=== PATIENT | female | born 1970 | race Two or more races ===

== ENCOUNTER 2016-10-20 22:52 | Inpatient (IN) | payer BC ==
--- NOTE | ~2016-10-20 | DS ---
Discharge Summary [address] [place]. [address] NAME: MIKO MARQUEZ : 66 STATUS : ADM IN [facility]#: [id number] AGE: 46 ADM/REG DATE : 10/21/16 MR#: [id number] REPORT SERV DATE: 10/22/16 DICTATED BY: EVERT JOHNSON DATE: 10/22/16 REPORT STATUS : Draft TRANSCRIBED BY: MODL DATE: 10/22/16 ADMISSION DATE: 10/21/2016 DISCHARGE DATE: 10/22/2016 FINAL HOSPITAL DIAGNOSES: 1. Diabetes mellitus, hyperglycemic episode without diabetic ketoacidosis. 2. Palpitations, resolved. CONSULTATIONS: rn diabetes educator. PROCEDURES: None. CURRENT PHYSICAL FINDINGS AND HPI: Please see dictated H and P by Dr. Agustin. In brief, the patient is a 46-year-old female with a history of diabetes mellitus, not on medications for approximately the past year secondary to diet and exercise management, presented with a nonketotic hyperosmolar state with a blood glucose of over 600. She also complained of palpitations. Vital signs at time of admission, BP was 172/98, subsequent blood pressures were 130s to 140s over 80s. No fever during her hospital stay. Initial heart rate was greater than 100. After IV fluids, her average heart rate was 70s to 80s. Despite her elevated blood sugar, her initial BMP was unremarkable. Initial blood sugar was 605. This was brought down rapidly with an insulin drip. Troponin was negative x2. A1c was 14. No leukocytosis was noted. Urinalysis was unremarkable. The patient was admitted. She was started on insulin drip, IV fluids, electrolyte replacement, serial labs; and I saw her the following day. Her blood sugars were markedly improved on 2-3 units an hour of insulin drip. Diabetic education was requested. The drip was transitioned over to sliding scale and after confirming her electrolytes were stable, a metformin was reintroduced. Subsequently, blood sugars were averaging 250 or below. The patient did well with her diabetic teaching and I felt stable for discharge. She was assisted with finding a local PCP for followup. DISPOSITION: She is discharged home. She needs to follow up with PCP of choice within the next several weeks. She was given a prescription for metformin 500 b.i.d.; OneTouch strips and a meter; Habitrol patch 21 mg apply daily, 14, no refill. [place] for NovoLog FlexPen and a copy of the sliding scale. She will also continue her Aleve and Zantac p.r.n. She is to return for any worsening symptoms. TLF/BRONSON Evert Johnson M.D. / [id number] CC: Discharge Summary [address] [address] NAME: MIKO MARQUEZ : 66 STATUS : ADM IN [facility]#: [id number] AGE: 46 ADM/REG DATE : 10/21/16 MR#: [id number] REPORT SERV DATE: 10/22/16 DICTATED BY: EVERT JOHNSON DATE: 10/22/16 REPORT STATUS : Draft TRANSCRIBED BY: MODL DATE: 10/22/16 Evert Johnson M.D.
--- NOTE | ~2016-10-20 | HP ---
History And Physical [address] [facility] [place]. [address] NAME: MIKO LLOYD : 66 STATUS : ADM IN [facility]#: [id number] AGE: 46 ADM/REG DATE : 10/21/16 MR#: [id number] REPORT SERV DATE: 10/21/16 DICTATED BY: KAMALJIT CHAWLA DATE: 10/21/16 REPORT STATUS : Draft TRANSCRIBED BY: MODL DATE: 10/21/16 DATE OF ADMISSION: 10/21/2016 POINT OF ENTRY: [facility] Emergency Department. PRIMARY CARE PHYSICIAN: None at this time. CHIEF COMPLAINT: Palpitations and racing heart rate, elevated blood sugar. HISTORY OF PRESENT ILLNESS: Ms. Lloyd is a 46-year-old female with history of non-insulin- dependent diabetes mellitus type 2, currently not on any medications who presents here today with the acute onset of racing heart rate with palpitations and elevated blood sugar. The patient was formerly on metformin and managed through a local physician's care. For some reason, she stopped taking metformin about a year ago in the setting of dieting and some significant weight loss. She admittedly has not followed up with any physician since then, has not checked her blood sugar since then either. The patient does report some polyuria and polydipsia for the past few days in addition to the above-mentioned symptoms of racing heart rate and palpitations. Today, she complained of the symptoms, and her family states they could even see her heart racing in on her chest. They checked her blood sugar at that time, and it was very elevated at 484 and presented to the emergency department. She denies any recent fevers, night sweats, chills, chest pain, shortness of breath, cough, sputum production, abdominal pain, nausea, vomiting, diarrhea, constipation, dysuria, melena, hematochezia, hemoptysis, or hematemesis. Initial evaluation in the emergency department noted for a blood sugar initially of 605 with no evidence of DKA. She was started on some IV fluids as well as insulin drip and admitted to the Hospitalist Service. COMPREHENSIVE REVIEW OF SYSTEMS: Otherwise negative unless listed in history of present illness. PREVIOUS MEDICAL HISTORY: Qes-wdewkkt-wswhtntji diabetes mellitus type 2. SURGICAL HISTORY: None. ALLERGIES: NO KNOWN DRUG ALLERGIES. HOME MEDICATIONS: 1. Aleve 440 mg p.r.n. 2. Zantac 75 mg daily. SOCIAL HISTORY: Denies any tobacco, alcohol, or illicits. Formerly from [facility]. History And Physical [address] [address] NAME: MIKO LLOYD : 66 STATUS : ADM IN PAT#: [id number] AGE: 46 ADM/REG DATE : 10/21/16 MR#: [id number] REPORT SERV DATE: 10/21/16 DICTATED BY: KAMALJIT CHAWLA DATE: 10/21/16 REPORT STATUS : Draft TRANSCRIBED BY: MODAugust DATE: 10/21/16 FAMILY MEDICAL HISTORY: Mom and dad reportedly healthy. Siblings history is unknown as all her family members are living in [facility] currently. LABS AND IMAGIN. White count 7.0, hemoglobin 15.6, hematocrit 42.6, platelet count is 203, INR 0.9. 2. Sodium is 135, potassium 3.9, chloride 99, carbon dioxide 26, BUN 12, creatinine 0.82, glucose is 605, magnesium 1.7. Calcium is 9.8, protein is 8.3, albumin is 4.1, bilirubin 0.4, ALT is 46, AST 21, alkaline phosphatase is 91. 3. Troponin less than 0.0. 4. Serum acetone is negative. 5. Urinalysis; specific gravity 1.022, positive ketones, no evidence of any infection. 6. Her EKG per my review shows sinus tachycardia with heart rate of 102. I do not see any acute ischemia or infarction. PHYSICAL EXAMINATION: VITAL SIGNS: Temperature is 98.3 degrees Fahrenheit, pulse is reported to be 177, respirations 16, saturating 95% on room air. Blood pressure 172/98. On recheck, blood pressure is now 130/75. Pulse of 100. GENERAL: The patient is awake, alert, in no acute distress. Resting comfortably. She is a well-developed, well-nourished, female. HEENT: Atraumatic and normocephalic. Slightly dry mucous membranes. Pupils are equal, round, reactive to light and accommodation. Extraocular eye movements intact. No scleral icterus. NECK: No jugular venous distention. No carotid bruits. CARDIAC: Regular rate and rhythm. No murmurs, rubs, or gallops. Normal S1, S2. LUNGS: Clear to auscultation bilaterally. No wheezes, rhonchi, or crackles. ABDOMEN: Soft, nontender, nondistended. Good bowel sounds. No rebound, guarding, or rigidity. EXTREMITIES: Warm and well perfused. No cyanosis, clubbing, or edema. SKIN: Warm and dry. PSYCH: Affect appropriate. NEURO: Alert and oriented x3. Cranial nerves 2 through 12 grossly intact. Speech is normal. Gait is not assessed. ASSESSMENT AND PLAN: Ms. Lloyd is 46-year-old female with history of xaz-rmrepkj-ukbenzuta diabetes mellitus type 2 with medication noncompliance who presents with hyperglycemic hyperosmolar syndrome. PROBLEM LIST: 1. Hyperglycemic hyperosmolar syndrome. 2. Medication noncompliance. 3. Dehydration. 4. Tachycardia and palpitations. PLAN: 1. Hyperglycemic hyperosmolar syndrome. Provide aggressive IV fluid hydration as well as History And Physical [address] [address] NAME: MIKO LLOYD : 66 STATUS : ADM IN [facility]#: [id number] AGE: 46 ADM/REG DATE : 10/21/16 MR#: [id number] REPORT SERV DATE: 10/21/16 DICTATED BY: KAMALJIT CHAWLA DATE: 10/21/16 REPORT STATUS : Draft TRANSCRIBED BY: BRONSON DATE: 10/21/16 IV insulin, check hemoglobin A1c. Diabetic nurse educator consultation. At some point, we will need to wean her off IV insulin and place her back on an oral hypoglycemic agent in preparation for discharge. 2. Palpitations and tachycardia, likely secondary to dehydration as well as hyperglycemia. This is now much improved with IV fluids and correction of hyperglycemia. 3. Dehydration. Aggressive IV fluid hydration. 4. DVT prophylaxis. Lovenox subcu. CODE STATUS: The patient wished to be full code. REFGUIO/KEEL Kamaljit Chawla MD / [id number] CC: Blas Marquez M.D.
[2016-10-20 23:38] LABS: BASOPHILS 0.6 %; BASOPHILS ABSOLUTE 0.04 10/3/uL (0.0-0.16); EOSINOPHILS 3.6 %; EOSINOPHILS ABSOLUTE 0.25 10/3/uL (0.0-0.53); ER CBC TAT 0 Hrs 08 MinsNP; HEMATOCRIT 42.6 % (36.0-48.0); HEMOGLOBIN 15.6 g/dL (12.0-16.0); IMMATURE GRANULOCYTES 0.1 %; IMMATURE GRANULOCYTES ABSOLUTE 0.01 10/3/uL (0.0-0.11); LYMPHOCYTES ABSOLUTE 2.43 10/3/uL (0.67-4.30); MANUAL DIFF NO %; MEAN CORPUS HGB CONC 36.6 g/dL (32.0-36.0); MEAN CORPUSCULAR HEMOGLOB 31.5 pg (26.0-34.0); MEAN CORPUSCULAR VOLUME 85.9 fL (80-100); MEAN PLATELET VOLUME 10.3 fL (9.2-13.0); MONOCYTES 6.6 %; MONOCYTES ABSOLUTE 0.46 10/3/uL (0.21-1.20); NEUTROPHILS 54.1 %; NEUTROPHILS ABSOLUTE 3.76 10/3/uL (2.02-8.40); PLATELET COUNT 203 10/3/uL (150-400); RED CELL COUNT 4.96 10/6/uL (4.0-5.6)
[2016-10-20 23:48] LABS: INTERNATIONAL NORMAL RATI 0.9 UNITS (-); PROTIME (NOT ORD) 11.7 SEC (12.0-14.5)
[2016-10-21 00:03] LABS: ACETONE NEG; BUN (BLOOD UREA NITROGEN) 12 MG/DL (6-23); CALCIUM, SERUM 9.8 MG/DL (8.5-10.4); CHLORIDE, SERUM 99 MMOL/L (96-112); CO2 (CARBON DIOXIDE) 26 MMOL/L (24-34); CREATININE 0.82 MG/DL (0.55-1.02); GFR AFRICAN AMERICAN 98 ML/MIN (>=60); GFR NON AFRICAN AMERICAN 85 ML/MIN (>=60); GLUCOSE, SERUM 605 MG/DL (60-99); POTASSIUM, SERUM 3.9 MMOL/L (3.5-5.3); SODIUM, SERUM 135 MMOL/L (135-148); TROPONIN I <0.02 NG/ML (<0.05)
[2016-10-21 00:04] LABS: CHEST PAIN PROFILE TAT 0 Hrs 33 Mins
[2016-10-21 00:35] LABS: ALBUMIN 4.1 G/DL (3.5-5.0); ALKALINE PHOSPHATASE 91 U/L (45-117); SGPT(ALT) 46 U/L (5-65); TOTAL BILIRUBIN 0.4 MG/DL (0-1.2); TOTAL PROTEIN 8.3 G/DL (6.0-8.5)
[2016-10-21 00:36] LABS: DIRECT BILIRUBIN < 0.1 MG/DL (0.0-0.4); INDIRECT BILIRUBIN(NOT ORDER) 0.3 MG/DL (0.1-0.9)
[2016-10-21 00:38] LABS: SGOT(AST) 21 U/L (5-40)
[2016-10-21 01:00] LABS: ASCORBIC ACID (UR NOT ORDER) NEG (NEG); BILIRUBIN, URINE NEGATIVE (NEG); ER URINALYSIS TAT 0 Hrs 00 Mins; KETONE, URINE 20 MG/DL (NEG); LEUKOCYTE ESTERASE(NOT OR NEG (NEG); NITRITE (URINE) NEG (NEG); WBC (NOT ORDERED) (RFLEX) < 1 (0-5)
[2016-10-21] MEDS ORDERED: ALEVE220 MG PO (01:54)
[2016-10-21] MEDS ORDERED: ZANTAC (01:55)
[2016-10-21 11:37] LABS: BASOPHILS 0.5 %; BASOPHILS ABSOLUTE 0.03 10/3/uL (0.0-0.16); EOSINOPHILS 3.5 %; EOSINOPHILS ABSOLUTE 0.23 10/3/uL (0.0-0.53); HEMATOCRIT 38.7 % (36.0-48.0); HEMOGLOBIN 13.9 g/dL (12.0-16.0); IMMATURE GRANULOCYTES 0.2 %; IMMATURE GRANULOCYTES ABSOLUTE 0.01 10/3/uL (0.0-0.11); LYMPHOCYTES 40.7 %; MEAN CORPUS HGB CONC 35.9 g/dL (32.0-36.0); MEAN CORPUSCULAR HEMOGLOB 30.6 pg (26.0-34.0); MEAN CORPUSCULAR VOLUME 85.2 fL (80-100); MEAN PLATELET VOLUME 9.7 fL (9.2-13.0); MONOCYTES 7.1 %; MONOCYTES ABSOLUTE 0.47 10/3/uL (0.21-1.20); PLATELET COUNT 185 10/3/uL (150-400); RED CELL COUNT 4.54 10/6/uL (4.0-5.6); WHITE BLOOD CELLS 6.6 10/3/uL (4.5-10.5)
[2016-10-21 11:38] LABS: MANUAL DIFF NO %
[2016-10-21 11:55] LABS: ALBUMIN 3.5 G/DL (3.5-5.0); ALKALINE PHOSPHATASE 74 U/L (45-117); BUN (BLOOD UREA NITROGEN) 9 MG/DL (6-23); CALCIUM, SERUM 8.6 MG/DL (8.5-10.4); CHLORIDE, SERUM 109 MMOL/L (96-112); CO2 (CARBON DIOXIDE) 28 MMOL/L (24-34); CREATININE 0.39 MG/DL (0.55-1.02); GFR AFRICAN AMERICAN 144 ML/MIN (>=60); GFR NON AFRICAN AMERICAN 124 ML/MIN (>=60); GLOBULIN 3.5 G/DL (2.5-4.1); GLUCOSE, SERUM 204 MG/DL (60-99); POTASSIUM, SERUM 3.7 MMOL/L (3.5-5.3); SGPT(ALT) 38 U/L (5-65); SODIUM, SERUM 142 MMOL/L (135-148); TOTAL BILIRUBIN 0.3 MG/DL (0-1.2); TROPONIN I <0.02 NG/ML (<0.05)
[2016-10-21 11:56] LABS: SGOT(AST) 20 U/L (5-40)
[2016-10-22 06:10] LABS: BASOPHILS 0.6 %; BASOPHILS ABSOLUTE 0.04 10/3/uL (0.0-0.16); EOSINOPHILS 4.9 %; EOSINOPHILS ABSOLUTE 0.34 10/3/uL (0.0-0.53); HEMATOCRIT 38.6 % (36.0-48.0); HEMOGLOBIN 13.7 g/dL (12.0-16.0); IMMATURE GRANULOCYTES 0.1 %; IMMATURE GRANULOCYTES ABSOLUTE 0.01 10/3/uL (0.0-0.11); LYMPHOCYTES 44.2 %; LYMPHOCYTES ABSOLUTE 3.07 10/3/uL (0.67-4.30); MEAN CORPUS HGB CONC 35.5 g/dL (32.0-36.0); MEAN CORPUSCULAR HEMOGLOB 30.4 pg (26.0-34.0); MEAN CORPUSCULAR VOLUME 85.8 fL (80-100); MEAN PLATELET VOLUME 10.2 fL (9.2-13.0); MONOCYTES 8.2 %; MONOCYTES ABSOLUTE 0.57 10/3/uL (0.21-1.20); NEUTROPHILS ABSOLUTE 2.92 10/3/uL (2.02-8.40); PLATELET COUNT 185 10/3/uL (150-400); RBC DISTRIBUTION WIDTH 12.1 % (12.0-16.0)
[2016-10-22 06:11] LABS: MANUAL DIFF NO %
[2016-10-22 06:26] LABS: BUN (BLOOD UREA NITROGEN) 6 MG/DL (6-23); CALCIUM, SERUM 8.7 MG/DL (8.5-10.4); CHLORIDE, SERUM 108 MMOL/L (96-112); CO2 (CARBON DIOXIDE) 29 MMOL/L (24-34); CREATININE 0.37 MG/DL (0.55-1.02); GFR AFRICAN AMERICAN 146 ML/MIN (>=60); GFR NON AFRICAN AMERICAN 126 ML/MIN (>=60); GLUCOSE, SERUM 244 MG/DL (60-99); POTASSIUM, SERUM 3.7 MMOL/L (3.5-5.3); SODIUM, SERUM 143 MMOL/L (135-148)
[2016-10-22] MEDS ORDERED: GLUCPH PO (17:59)
[2016-10-22] MEDS ORDERED: HABIT21 TOP (17:59)
[2016-10-22] MEDS ORDERED: NOVOPEN SC (18:00)
== END 2016-10-22 18:55 | disposition home or self-care (01) | DRG 639 ==
LOC: ER 22:52 → 4SO 10-21 02:42
PROVIDERS: Emergency Medicine; Internal Medicine; Specialist
DX: E11.00 Type 2 diabetes mellitus with hyperosmolarity without nonketotic hyperglycemic-hyperosmolar coma (NKHHC) (principal); E86.0 Dehydration; T38.3X6A Underdosing of insulin and oral hypoglycemic [antidiabetic] drugs, initial encounter; Z91.138 Patient's unintentional underdosing of medication regimen for other reason; Y92.009 Unspecified place in unspecified non-institutional (private) residence as the place of occurrence of the external cause; R00.0 Tachycardia, unspecified; K21.9 Gastro-esophageal reflux disease without esophagitis
CPT/HCPCS: 71020; 80048; 80053; 80076; 81001; 82009; 82962; 83036; 83735; 84484; 85025; 85610; 85730; 93005; 96374; 99285; A9270-GY; J2405